=== PATIENT | female | born 1950 | race Caucasian/White ===

== ENCOUNTER 2017-07-09 14:08 | Observation (INO) | payer OTHER, MEDICARE ==
[~2017-07-09] VITALS: Ht 162.6 cm; Wt 69.9 kg
[~2017-07-09 14:08] MED LIST: ASCA500 PO; ASPEC81 PO; CALCTAB5 PO; DOCU-94 PO; GABA-113 PO; HYDR-5688 PO; LEVO50TA6 PO; LEVO75TA5 PO; LORA1TAB13 PO; MULT-506 PO; OXYSR10 PO; ROPI0.25 PO; SERT100T PO; SIMV40TA2 PO; SNK PO; VTMD1000 PO; ZINC1TAB PO
[2017-07-09] MEDS ORDERED: ASPIRIN 81 MG CHEW PO STA (14:41)
[2017-07-09] MEDS ORDERED: ALUMINUM/MAGNESIUM SUSP 30 ML UDC PO STA (14:41)
[2017-07-09 15:01] LABS: BASO % 0.9 %; BASO ABS # 0.06 K/uL (0-0.2); EOS % 1.1 %; EOS ABS # 0.07 K/uL (0-0.5); HEMATOCRIT 40.2 % (37-47); HEMOGLOBIN 13.7 g/dL (12.0-16.0); IG# 0.01 K/uL (0.00-0.02); LYMPH % 33.5 %; LYMPH ABS # 2.12 K/uL (1.2-3.4); MEAN CELL VOLUME 86.3 fL (80-100); MEAN CORPUSCULAR HEMOGLOBIN 29.4 pg (25-34); MEAN CORPUSCULAR HGB CONC 34.1 g/dl (32-36); MEAN PLATELET VOLUME 10.3 fL (7.4-10.4); MONO % 8.1 %; MONO ABS # 0.51 K/uL (0.11-0.59); NEUT % 56.2 %; NEUT ABS # 3.55 K/uL (1.4-6.5); PLATELET COUNT 259 K/uL (130-400); RED CELL DISTRIBUTION WIDTH CV 13.2 % (11.5-14.5); RED CELL DISTRIBUTION WIDTH SD 41.9 fL (36.4-46.3); WHITE BLOOD COUNT 6.32 K/uL (4.8-10.8)
--- NOTE | 2017-07-09 15:03 | EMERGENCY ROOM VISIT NOTE ---
History Report prepared by Junior: Froylan Gayle Under the Supervision of: Dr. Kirill Bhandari D.O. First contact with patient: 14:33 Chief Complaint: CHEST PAIN Stated Complaint: CHEST PAIN Nursing Triage Summary: C/O CP all day described as burning with pain radiating into the left arm and tingling in left fingers. Denies cardaic hx. History of Present Illness The patient is a 67 year old female who presents to the Emergency Room with complaints of intermittent chest discomfort beginning 7.5 hours ago. The patient states she took her morning medication with a glass of water. She reports as she drank the water and developed severe chest pain. The patient notes it went away, and then came back. She states it was worse when she returned. The patient reports she developed another sensation as well, but she cannot explain it. She notes it is different from the pain. The patient states she was not experiencing this discomfort when her first EKG was performed. She reports she took 81mg of aspirin, but it did not help. The patient notes exertion worsens her pain. She states the past couple of days she has been experiencing more leg pain than normal. The patient reports she had a heart catheterization 12 years ago, and it was completely clean. She notes she had it performed because her medical doctor wanted it for the patient's family history of heart disease. The patient states she has a long family history of cardiac disease, and her mother from an [place]. She reports she has a history of fibromyalgia, HLD, a hysterectomy, tubal ligation, and bilateral knee replacements. The patient denies abdominal pain, a history of smoking, using alcohol, a history of cancer, a history of blood clots in her legs or lung, HTN , DM, and a history of stomach problems. Source of History: patient Onset: 7.5 hours ago Position: chest Symptom Intensity: severe Timing: intermittent Modifying Factors (Worsening): exertion Associated Symptoms: No abdominal pain Note: Associated symptoms: more leg pain than normal Review of Systems See HPI for pertinent positives & negatives. A total of 10 systems reviewed and were otherwise negative. Past Medical & Surgical Medical Problems: (1) Chest pain (2) Fibromyalgia (3) HLD (hyperlipidemia) Surgical Problems: (1) Post-operative state Family History Heart disease Hypertension Social History Smoking Status: Former Smoker Alcohol Use: none Marital Status: Housing Status: lives with significant other Occupation Status: retired Current/Historical Medications Scheduled Ascorbic Acid (Vitamin C), 1,000 MG PO QAM Aspirin (Aspirin Ec), 81 MG PO HS Calcium Carbonate (Calcium Carbonate), 1,200 MG PO QAM Cholecalciferol (Vitamin D3), 5,000 UNITS PO DAILY Gabapentin (Neurontin), 600 MG PO TID Garlic (Garlic), Unknown Dose PO DAILY Levothyroxine Sodium (Levothyroxine Sodium), 75 MCG PO QAM Lorazepam (Lorazepam), 1 TAB PO HS Magnesium Oxide (Magnesium), Unknown Dose PO DAILY Multivitamin (Multivitamin), 1 TAB PO QAM Ropinirole (Requip), 4 MG PO HS Sertraline (Zoloft), 50 MG PO QAM Sertraline Hcl (Zoloft), 100 MG PO QAM Simvastatin (Zocor), 40 MG PO QPM Zinc Gluconate (Zinc), 50 MG PO QAM Scheduled PRN Tramadol (Ultram), 50 MG PO Q6H PRN for Pain Allergies Coded Allergies: Sulfa Antibiotics (Verified Allergy, Severe, HIVES, 07/09/17) Chlorhexidine (Verified Allergy, Intermediate, FOLLICULITIS NEEDING ANTIBIOTICS, 07/09/17) pt got folliculitis from use and had to be placed on antibiotic Physical Exam Vital Signs Date Time Temp Pulse Resp B/P (MAP) Pulse Ox O2 Delivery O2 Flow Rate FiO2 07/09/17 17:00 63 20 140/76 96 Room Air 07/09/17 15:26 60 20 128/71 96 07/09/17 15:08 66 20 128/71 95 07/09/17 14:39 69 07/09/17 14:35 Room Air 07/09/17 14:13 36.9 73 18 128/90 96 Room Air Physical Exam GENERAL: Patient is awake, alert, and in no acute distress. Patient is resting comfortably and showing no signs of anxiety EYES: The conjunctivae are clear. The pupils are round and reactive. EARS, NOSE, MOUTH AND THROAT: The nose is without any evidence of any deformity. Mucous membranes are moist tongue is midline NECK: The neck is nontender and supple. RESPIRATORY: Normal respiratory effort is noted there is no evidence of wheezing rhonchi or rales CARDIOVASCULAR: Regular rate and rhythm noted there no murmurs rubs or gallops normal S1 normal S2 GASTROINTESTINAL: The abdomen is soft. Bowel sounds are present in all quadrants. Abdomen is nontender MUSCULOSKELETAL/EXTREMITIES: There is no evidence of gross deformity full range of motion is noted in the hips and shoulders SKIN: There is no obvious evidence of any rash. There are no petechiae, pallor or cyanosis noted. NEUROLOGIC: Patient is awake alert and oriented x3. Medical Decision & Procedures ER Provider Diagnostic Interpretation: X-ray results as stated below per interpretation by me and the radiologist. CHEST ONE VIEW PORTABLE HISTORY: 67 years-old Female CHEST PAIN acute atypical chest pain COMPARISON: Chest radiograph 03/19/2015 TECHNIQUE: Portable AP view of the chest FINDINGS: Cardiomediastinal and hilar silhouettes are within normal limits. Atherosclerosis of the aorta. No pneumothorax, pleural effusion, focal airspace consolidation or overt pulmonary edema. The bones of the chest appear grossly intact. IMPRESSION: No acute process. The above report was generated using voice recognition software. It may contain grammatical, syntax or spelling errors. Electronically signed by: Kaushik Rodriguez M.D. 07/09/2017 3:33 PM Dictated Date/Time: 07/09/2017 3:32 PM Laboratory Results 07/09/17 14:50 Red Blood Count 4.66, Mean Corpuscular Volume 86.3, Mean Corpuscular Hemoglobin 29.4, Mean Corpuscular Hemoglobin Concent 34.1, Mean Platelet Volume 10.3, Neutrophils (%) (Auto) 56.2, Lymphocytes (%) (Auto) 33.5, Monocytes (%) (Auto) 8.1, Eosinophils (%) (Auto) 1.1, Basophils (%) (Auto) 0.9, Neutrophils # (Auto) 3.55, Lymphocytes # (Auto) 2.12, Monocytes # (Auto) 0.51, Eosinophils # (Auto) 0.07, Basophils # (Auto) 0.06 07/09/17 14:50 Test 07/09/17 14:50 White Blood Count 6.32 K/uL (4.8-10.8) Red Blood Count 4.66 M/uL (4.2-5.4) Hemoglobin 13.7 g/dL (12.0-16.0) Hematocrit 40.2 % (37-47) Mean Corpuscular Volume 86.3 fL (80-100) Mean Corpuscular Hemoglobin 29.4 pg (25-34) Mean Corpuscular Hemoglobin Concent 34.1 g/dl (32-36) Platelet Count 259 K/uL (130-400) Mean Platelet Volume 10.3 fL (7.4-10.4) Neutrophils (%) (Auto) 56.2 % Lymphocytes (%) (Auto) 33.5 % Monocytes (%) (Auto) 8.1 % Eosinophils (%) (Auto) 1.1 % Basophils (%) (Auto) 0.9 % Neutrophils # (Auto) 3.55 K/uL (1.4-6.5) Lymphocytes # (Auto) 2.12 K/uL (1.2-3.4) Monocytes # (Auto) 0.51 K/uL (0.11-0.59) Eosinophils # (Auto) 0.07 K/uL (0-0.5) Basophils # (Auto) 0.06 K/uL (0-0.2) RDW Standard Deviation 41.9 fL (36.4-46.3) RDW Coefficient of Variation 13.2 % (11.5-14.5) Immature Granulocyte % (Auto) 0.2 % Immature Granulocyte # (Auto) 0.01 K/uL (0.00-0.02) Prothrombin Time 10.9 SECONDS (9.0-12.0) Prothromb Time International Ratio 1.0 (0.9-1.1) Activated Partial Thromboplast Time 27.4 SECONDS (21.0-31.0) Partial Thromboplastin Ratio 1.1 Anion Gap 7.0 mmol/L (3-11) Est Creatinine Clear Calc Drug Dose 68.8 ml/min Estimated GFR () 95.6 Estimated GFR (Non- 82.5 BUN/Creatinine Ratio 21.3 (10-20) Calcium Level 8.9 mg/dl (8.5-10.1) Total Bilirubin 0.6 mg/dl (0.2-1) Direct Bilirubin 0.1 mg/dl (0-0.2) Aspartate Amino Transf (AST/SGOT) 16 U/L (15-37) Alanine Aminotransferase (ALT/SGPT) 27 U/L (12-78) Alkaline Phosphatase 92 U/L (45-117) Troponin I < 0.015 ng/ml (0-0.045) Total Protein 7.3 gm/dl (6.4-8.2) Albumin 4.0 gm/dl (3.4-5.0) Lipase 209 U/L (73-393) Laboratory results per my review. Medications Administered Medications (Trade) Dose Ordered Sig/Mele Route Start Time Stop Time Status Last Admin Dose Admin Al Hydroxide/Mg Hydroxide (Maalox Susp) 30 ml NOW STAT PO 07/09/17 14:41 07/09/17 14:42 DC 07/09/17 15:02 30 ML Aspirin (Aspirin Chew) 162 mg NOW STAT PO 07/09/17 14:41 07/09/17 14:42 DC 07/09/17 15:02 162 MG ECG Indication: chest pain Rate (beats per minute): 63 Rhythm: normal sinus Findings: no ectopy, other (No acute ST segment abnormality) Comparison ECG Date: 03/19/15 Change: no significant change Change: Second EKG with chest discomfort: Normal Sinus 60, no ectopy, no change from previous EKG Patient's EKG was interpreted by me. ED Course 1436: The patient was evaluated in room A11B. A complete history and physical examination were performed. 1441: Ordered Aspirin 162 mg PO, Maalox Susp 30 ml PO 1532: The patient's HEART Score was calculated to be 5. 1556: Upon reevaluation, the patient is resting comfortably. I discussed results and treatment plan with her. She verbalizes agreement and understanding. The patient will be evaluated for further management and care. 1605: I discussed the patient's case [facility] Powell[facility] The patient will be evaluated for further management and care. Medical Decision Differential diagnosis: Etiologies such as cardiac ischemia, aortic dissection, pulmonary embolism, pneumonia, pneumothorax, musculoskeletal, infections, pericarditis, myocarditis , esophageal rupture, gastrointestinal, as well as others were entertained. Nursing notes reviewed. The patient is a 67-year-old female who presented to the emergency department for an evaluation of chest discomfort. The patient describes burning on her chest which goes to her jaw but also seemed to be somewhat epigastric in nature. The patient has a strong family history of early coronary artery disease. She also states that the pain was somewhat related to exertion. I discussed the patient's laboratory and radiographic studies with her. I also discussed the limitations of the emergency department workup for chest pain with her. She was given aspirin in the emergency department. Her heart score appears to be 5. I feel this puts her at higher risk for a cardiac event. For this reason I discussed her case with the on-call [facility] [address] hospitalist. They have agreed to evaluate the patient in the emergency department for further management and disposition. The patient was agreeable to this point. Medication Reconcilliation Current Medication List: was personally reviewed by me Blood Pressure Screening Patient's blood pressure: Elevated blood pressure Monitored by hospitalist. Consults Time Called: 1558 Consulting Phys[facility] Returned Call: 1605 I discussed the patient's [facility] The patient will be evaluated for further management and care. Impression Primary Impression: Exertional chest pain Scribe Attestation The scribe's documentation has been prepared under my direction and personally reviewed by me in its entirety. I confirm that the note above accurately reflects all work, treatment, procedures, and medical decision making performed by me. Departure Information Dispostion Being Evaluated By Hospitalist Referrals Jonathan Navarro M.D. (PCP) Patient Instructions My [facility]
[2017-07-09] MEDS ORDERED: CALC-392 PO (15:04)
[2017-07-09] MEDS ORDERED: GARL400T2 PO (15:04)
[2017-07-09] MEDS ORDERED: MAGN1TAB41 PO (15:04)
[2017-07-09] MEDS ORDERED: SERT50TA PO (15:04)
[2017-07-09] MEDS ORDERED: ROPI4TAB3 PO (15:04)
[2017-07-09] MEDS ORDERED: TRAM-10 PO (15:04)
[2017-07-09] MEDS ORDERED: ASPI81TA28 PO (15:04)
[2017-07-09] MEDS ORDERED: CHOLCAP5 PO (15:10)
[2017-07-09 15:18] LABS: ALT/SGPT 27 U/L (12-78); AST/SGOT 16 U/L (15-37); BLOOD UREA NITROGEN 16 mg/dl (7-18); CALCIUM 8.9 mg/dl (8.5-10.1); CARBON DIOXIDE 26 mmol/L (21-32); CREATININE 0.75 mg/dl (0.60-1.20); GLUCOSE 84 mg/dl (70-99); LIPASE 209 U/L (73-393); PTT PATIENT 27.4 SECONDS (21.0-31.0); SODIUM 139 mmol/L (136-145)
[2017-07-09 15:25] LABS: ALKALINE PHOSPHATASE 92 U/L (45-117); TOTAL PROTEIN 7.3 gm/dl (6.4-8.2)
--- NOTE | 2017-07-09 15:35 | DIAGNOSTIC IMAGING REPORT ---
CHEST ONE VIEW PORTABLE HISTORY: 67 years-old Female CHEST PAIN acute atypical chest pain COMPARISON: Chest radiograph 03/19/2015 TECHNIQUE: Portable AP view of the chest FINDINGS: Cardiomediastinal and hilar silhouettes are within normal limits. Atherosclerosis of the aorta. No pneumothorax, pleural effusion, focal airspace consolidation or overt pulmonary edema. The bones of the chest appear grossly intact. IMPRESSION: No acute process. The above report was generated using voice recognition software. It may contain grammatical, syntax or spelling errors. Electronically signed by: Kaushik Rodriguez M.D. 07/09/2017 3:33 PM Dictated Date/Time: 07/09/2017 3:32 PM
[2017-07-09] MEDS ORDERED: MoRPHine SULFATE 2 MG/ML CARP IV PRN (16:45)
[2017-07-09] MEDS ORDERED: ACETAMINOPHEN 325 MG TAB PO PRN (16:45)
[2017-07-09] MEDS ORDERED: NITROGLYCERIN 0.4 MG SL PER TAB CHARGE SL PRN (16:45)
[2017-07-09] MEDS ORDERED: TRAMADOL HCL 50 MG TAB PO PRN (16:45)
[2017-07-09] MEDS ORDERED: ONDANSETRON INJ 2 MG/ML 2 ML VIAL IV PRN (16:45)
[2017-07-09] MEDS ORDERED: ALUMINUM/MAGNESIUM/SIMETH (MAALOX MAX) 30 ML UDC PO PRN (16:45)
[2017-07-09] MEDS ORDERED: POLYETHYLENE (MIRALAX) 17 GM PACK PO PRN (16:45)
[2017-07-09 17:58] VITALS: BP 126/78; PULSE 65; TEMP 37; O2SAT 99; Ht 162.6 cm; Wt 69.9 kg
[2017-07-09 19:08] VITALS: BP 120/72; PULSE 66; TEMP 37.3; O2SAT 95
--- NOTE | 2017-07-09 19:12 | HISTORY & PHYSICAL EXAMINATION ---
DATE OF ADMISSION: 07/09/2017 CHIEF COMPLAINT: Chest pain. HISTORY OF PRESENT ILLNESS: This is a 67-year-old female with past medical history significant for hypothyroidism, irritable bowel syndrome, fibromyalgia, urinary incontinence, restless leg syndrome, GERD, dyslipidemia, panic attacks, anxiety attack, osteopenia presents with chest pain. The patient today morning after she took her Synthroid with a glass of water then she noticed chest pain. She thought it was from gas related, but it did not go away in the afternoon and keep getting worse, coming on and off, radiating to her left jaw, left shoulder, and left arm, not associated with any nausea or sweating, no dizziness, no headaches, no blurred vision, no cough. She gets short of breath on exertion usually. No sore throat, no difficulty swallowing. No fever, no chills. No abdominal pain, no diarrhea, no constipation, no blood in the urine, no blood in the stools. No swelling in the legs. No skin rash. Currently resting comfortably and hemodynamically stable. The pain is coming on and off. The patient has significant family history. Her mother of cardiac disease and her 2 brothers and 1 sister has coronary artery disease and CABGs so she had a cardiac catheterization done 12 years ago in 2005 because of family history and it was clean at that time. ALLERGIES: CHLORHEXIDINE AND SULFA ANTIBIOTICS. PAST MEDICAL HISTORY: As mentioned above. PAST SURGICAL HISTORY: Colonoscopy, knee arthroscopy, total hysterectomy, cardiac catheterization, upper endoscopy. MEDICATIONS: The patient is on Ativan 1 mg p.o. at bedtime, ropinirole 4 mg p.o. at bedtime, tramadol 50 mg every 6 hours p.r.n., gabapentin 300 mg in a.m. and in the afternoon and 600 mg at bedtime, Zoloft 150 mg p.o. daily, simvastatin 40 mg p.o. daily, levothyroxine 75 mcg p.o. daily, zinc 70 mg p.o. capsule daily, vitamin D 5000 units p.o. daily, multivitamin p.o. daily, vitamin C 500 mg p.o. daily, calcium plus magnesium 1 tablet daily, aspirin 81 mg p.o. daily. FAMILY HISTORY: Significant for father had leukemia. Mother had uterine cancer, glaucoma, hypertension, heart disease. Sister has leukemia. Two brothers had arthritis and also 2 of the 3 brothers and 1 sister have coronary artery disease. SOCIAL HISTORY: Former smoker, quit in 1995. Smoked 0.1 pack a day for 6 years. Alcohol rarely. No drug abuse. . REVIEW OF SYMPTOMS: As per HPI. Rest of review of symptoms negative. PHYSICAL EXAMINATION: GENERAL: The patient is of moderate build, not in distress. VITAL SIGNS: Temperature 36.9, pulse 63, respiratory rate 20, blood pressure 128/71, oxygen 96% on room air. HEENT: No pallor, no icterus. Pupils equal, round, and reactive to light. NECK: No JVD, no neck masses, no carotid bruits. CARDIOVASCULAR: S1, S2 heard, regular rate and rhythm, no murmur, no gallop. RESPIRATORY SYSTEM: Normal AP diameter. No accessory muscle use. No wheezing, no crackles. ABDOMEN: Soft, bowel sounds present. Nontender. No distention. CENTRAL NERVOUS SYSTEM: Cranial nerves II-XII grossly intact. Nonfocal. EXTREMITIES: No edema, no erythema. LABORATORY DATA: WBC 6.3, hemoglobin 13.7, hematocrit 40.2, platelets 259. Sodium 139, potassium 4, chloride 106, bicarbonate 26, BUN 16, creatinine 0.7, serum glucose 84, calcium 8.9, total bilirubin 0.6, direct bilirubin 0.1, AST 16, ALT 27, alkaline phosphatase 92, troponin I less than 0.015. Lipase 209. PT 10.9, INR 1, aPTT 27.4. Chest x-ray: No acute process seen. EKG: Normal sinus rhythm with a rate of 63. No ST changes seen. ASSESSMENT AND PLAN: This is a 67-year-old female who presents with chest pain. 1. Chest pain, rule out acute coronary syndrome. Initial workup negative. Significant family history. History of hyperlipidemia. We will observe on tele floor. Serial cardiac enzymes, echocardiogram, n.p.o. from midnight. If workup negative, possible stress test as per cardiology in a.m. We will follow the fasting lipid profile. 2. Hyperlipidemia. Continue statin. Follow fasting lipid profile. 3. History of anxiety and panic attacks. Continue Ativan and Zoloft. 4. Hyperlipidemia. Continue statin. 5. Hypothyroidism. Continue Synthroid. 6. Restless leg syndrome. Continue Requip. 7. Deep vein thrombosis prophylaxis, SCDs and TEDs. 8. Disposition: Observation in tele floor. Expect to discharge home and follow with family doctor. Level 1 full code. MTDD
[2017-07-09] MEDS: GABAPENTIN 600 MG TAB PO SCH (20:58)
[2017-07-09] MEDS ORDERED: SIMVASTATIN 40 MG TAB PO SCH (21:00)
[2017-07-09] MEDS ORDERED: ROPINIROLE HCL 1 MG TAB PO SCH (21:00)
[2017-07-09] MEDS ORDERED: ASPIRIN 81 MG ECTAB PO SCH (21:00)
[2017-07-09] MEDS ORDERED: LORAZEPAM 1 MG TAB PO SCH (21:00)
[2017-07-09 23:36] VITALS: BP 123/75; PULSE 62; TEMP 36.8; O2SAT 93
[2017-07-10 03:43] VITALS: BP 120/73; PULSE 62; TEMP 36.5; O2SAT 96
[2017-07-10] MEDS ORDERED: LEVOTHYROXINE 75 MCG TAB PO SCH (06:00)
[2017-07-10 07:26] VITALS: BP 114/70; PULSE 61; TEMP 36.4; O2SAT 95
[2017-07-10] MEDS: GABAPENTIN 600 MG TAB PO SCH (07:48)
[2017-07-10 08:56] LABS: BASO % 0.5 %; BASO ABS # 0.03 K/uL (0-0.2); EOS % 1.8 %; HEMATOCRIT 41.5 % (37-47); HEMOGLOBIN 14.2 g/dL (12.0-16.0); IG# 0.01 K/uL (0.00-0.02); LYMPH % 33.2 %; LYMPH ABS # 1.88 K/uL (1.2-3.4); MEAN CELL VOLUME 86.8 fL (80-100); MEAN CORPUSCULAR HEMOGLOBIN 29.7 pg (25-34); MEAN CORPUSCULAR HGB CONC 34.2 g/dl (32-36); MEAN PLATELET VOLUME 10.3 fL (7.4-10.4); MONO % 8.5 %; MONO ABS # 0.48 K/uL (0.11-0.59); NEUT % 55.8 %; NEUT ABS # 3.17 K/uL (1.4-6.5); PLATELET COUNT 252 K/uL (130-400); RED CELL DISTRIBUTION WIDTH CV 13.4 % (11.5-14.5); RED CELL DISTRIBUTION WIDTH SD 42.6 fL (36.4-46.3); WHITE BLOOD COUNT 5.67 K/uL (4.8-10.8)
[2017-07-10] MEDS ORDERED: ASCORBIC ACID 500 MG TAB PO SCH (09:00)
[2017-07-10] MEDS ORDERED: CALCIUM 600MG + VIT D 400 IU TAB PO SCH (09:00)
[2017-07-10] MEDS ORDERED: MULTIVITAMIN TAB PO SCH (09:00)
[2017-07-10] MEDS ORDERED: SERTRALINE HCL 50 MG TAB PO SCH (09:00)
[2017-07-10] MEDS ORDERED: SERTRALINE HCL 100 MG TAB PO SCH (09:00)
[2017-07-10 09:15] LABS: CALCIUM 9.6 mg/dl (8.5-10.1); CREATININE 0.7 mg/dl (0.60-1.20); POTASSIUM 4.1 mmol/L (3.5-5.1)
[2017-07-10] MEDS ORDERED: DOBUTamine HCL 12.5 MG/ML 20 ML VIAL ONE (09:51)
[2017-07-10] MEDS ORDERED: METOPROLOL TARTRATE 1 MG/ML VIAL ONE (09:51)
[2017-07-10] MEDS ORDERED: ATROPINE SULFATE 0.1 MG/ML 5ML SYR ONE (09:52)
--- NOTE | 2017-07-10 10:42 | ECHOCARDIOGRAM REPORT ---
*NOTICE TO RECEIVING DEMOCRAT AGENCY This information is strictly Confidential and protected under [place] law. [place] law prohibits you from making any further disclosure of this information unless further disclosure is expressly permitted by the written consent of the person to whom it pertains or is authorized by law. A general authorization for the release of medical or other information is not sufficient for this purpose. Hospital accepts no responsibility if the information is made available to any other person, INCLUDING THE PATIENT. Interpretation Summary * Name: RENITA RITCHIE Study Date: 07/10/2017 06:43 AM BP: 120/73 mmHg * Patient Location: [facility] HR: 62 * : 1950 (M/d/yyyy) Gender: Female Height: 62 in * Age: 67 yrs Ethnicity: [place] Weight: 156 lb * Ordering Physician: Teddy Powell * Referring Physician: Self, Referred * Performed By: Kelly Coulter RDCS * * Reason For Study: Chest Pain * BSA: 1.7 m2 * -- Conclusions -- * Normal LV chamber size and wall thickness. * Normal LV systolic function, EF 55-60%. * No segmental left ventricular wall motion abnormalities are noted. * Grade I diastolic dysfunction. * Mild tricuspid regurgitation. Procedure Details * A complete two-dimensional transthoracic echocardiogram was performed (2D, M-mode, Doppler and color flow Doppler). Left Ventricle * The left ventricle is normal in size. * There is normal left ventricular wall thickness. * Ejection Fraction = 55-60%. * Left ventricular systolic function is normal. * No segmental left ventricular wall motion abnormalities are noted. * The left ventricular wall motion is normal. Right Ventricle * The right ventricular cavity size is normal (basal dimension <4.2 cm in right ventricular apical 4-chamber view). * The right ventricular systolic function is normal as assessed by tricuspid annular plane systolic excursion (TAPSE) (normal >1.5 cm). Atria * The left atrial size is normal. * Right atrial size is normal. * No ASD detected; PFO is not assessed. Mitral Valve * The mitral valve is normal in structure and function. Tricuspid Valve * The tricuspid valve anatomy is normal. * There is no tricuspid stenosis. * There is mild tricuspid regurgitation. Aortic Valve * The aortic valve is normal in structure and function. Pulmonic Valve * The pulmonary valve is not well seen, but the Doppler examination is normal without significant regurgitation or stenosis. Great Vessels * The aortic root is normal size. Pericardium/Pleural * There is no pericardial effusion. Left Ventricular Diastolic Function * Grade I diastolic dysfunction, (abnormal relaxation pattern). MMode 2D Measurements and Calculations IVSd 0.88 cm IVSs 1.3 cm LVIDd 4.0 cm LVIDs 2.5 cm LVPWd 0.94 cm LVPWs 1.6 cm IVS/LVPW 0.93 FS 38.2 % EDV(Teich) 71.5 ml ESV(Teich) 22.2 ml EF(Teich) 69.0 % EDV(cubed) 65.7 ml ESV(cubed) 15.5 ml EF(cubed) 76.4 % % IVS thick 43.2 % % LVPW thick 65.7 % LV mass(C)d 112.6 grams LV mass(C)dI 65.5 grams/m\S\2 LV mass(C)s 111.9 grams LV mass(C)sI 65.1 grams/m\S\2 SV(Teich) 49.3 ml SI(Teich) 28.7 ml/m\S\2 SV(cubed) 50.2 ml SI(cubed) 29.2 ml/m\S\2 Ao root diam 2.7 cm Ao root area 5.9 cm\S\2 ACS 1.6 cm LA dimension 3.2 cm LA/Ao 1.2 LVAd ap4 22.5 cm\S\2 LVLd ap4 6.9 cm EDV(MOD-sp4) 63.0 ml EDV(sp4-el) 62.2 ml LVAs ap4 13.8 cm\S\2 LVLs ap4 6.3 cm ESV(MOD-sp4) 26.4 ml ESV(sp4-el) 25.9 ml EF(MOD-sp4) 58.1 % EF(sp4-el) 58.5 % LVAd ap2 25.9 cm\S\2 LVLd ap2 7.2 cm EDV(MOD-sp2) 79.1 ml EDV(sp2-el) 79.1 ml LVAs ap2 14.2 cm\S\2 LVLs ap2 5.8 cm ESV(MOD-sp2) 31.1 ml ESV(sp2-el) 29.3 ml EF(MOD-sp2) 60.7 % EF(sp2-el) 62.9 % LVLd %diff 4.1 % EDV(MOD-bp) 72.6 ml LVLs %diff -7.33 % ESV(MOD-bp) 29.7 ml EF(MOD-bp) 59.1 % SV(MOD-sp4) 36.6 ml SI(MOD-sp4) 21.3 ml/m\S\2 SV(MOD-sp2) 48.0 ml SI(MOD-sp2) 27.9 ml/m\S\2 SV(MOD-bp) 42.9 ml SI(MOD-bp) 24.9 ml/m\S\2 SV(sp4-el) 36.4 ml SI(sp4-el) 21.2 ml/m\S\2 SV(sp2-el) 49.8 ml SI(sp2-el) 28.9 ml/m\S\2 Doppler Measurements and Calculations MV E max pia 67.4 cm/sec MV A max pia 89.7 cm/sec MV E/A 0.75 MV dec time 0.43 sec Ao V2 max 135.7 cm/sec Ao max PG 7.4 mmHg Ao max PG (full) 4.4 mmHg LV V1 max PG 3.0 mmHg LV V1 max 86.8 cm/sec PA V2 max 107.1 cm/sec PA max PG 4.6 mmHg PI max pia 150.3 cm/sec PI max PG 9.0 mmHg PI dec slope 128.2 cm/sec\S\2 PI P1/2t 343.5 msec TR max pia 222.0 cm/sec
--- NOTE | 2017-07-10 10:56 | DOBUTAMINE ECHO ---
*NOTICE TO RECEIVING REPUBLICAN AGENCY This information is strictly Confidential and protected under [place] law. [place] law prohibits you from making any further disclosure of this information unless further disclosure is expressly permitted by the written consent of the person to whom it pertains or is authorized by law. A general authorization for the release of medical or other information is not sufficient for this purpose. Hospital accepts no responsibility if the information is made available to any other person, INCLUDING THE PATIENT. Interpretation Summary * Name: RENITA RITCHIE Study Date: 07/10/2017 09:28 AM BP: 106/59 mmHg * Patient Location: C.2T\S\S229\S\2 HR: 57 * : 1950 (M/d/yyyy) Gender: Female Height: 64 in * Age: 67 yrs Ethnicity: [place] Weight: 154 lb * Ordering Physician: Mushtaq Thacker * Referring Physician: Self, Referred * Performed By: Kelly Coulter RDCS * * Reason For Study: Chest Pain * BSA: 1.8 m2 * -- Conclusions -- * Nonischemic exercise stress echocardiogram. * No arrhythmias. * Normal HR and BP response to dobutamine infusion. * Chest pain was not reproduced with dobutamine infusion. Procedure Details * DOBUTAMINE ECHO, CPT#48379 * A contrast injection of Definity was performed to improve assessment of LV function. * Contrast was injected into an intravenous site in the right arm. * One vial of Definity ultrasound contrast was diluted in normal saline to a total volume of 10 ml. A total of '6' ml of solution was administered during imaging. * Lot # [id number] of Definity utilized for procedure. * Expiration date . * The attending nurse who injected the contrast agent was LAWRENCE Us. Stress Parameters * The stress portion of this study was personally supervised by the undersigned interpreting physician. * Rest heart rate was '57' BPM. * Rest blood pressure was '106/59' * Maximum heart rate achieved was 150 bpm. * Maximum heart rate was 98 % of maximum age-predicted heart rate. * Maximum blood pressure was '150/84' * Maximum Dobutamine infusion rate was '40' mcg/kg/min. * A total of 0.5 mg of intravenous Atropine was used to supplement Dobutamine for heart rate response. * Dobutamine infusion was terminated due to achieving target heart rate * A total of 5 mg of IV Metoprolol was administered to reverse Dobutamine-induced tachycardia.
[2017-07-10 11:05] VITALS: BP 129/85; PULSE 73; TEMP 36.4; O2SAT 96
--- NOTE | 2017-07-10 13:01 | CARDIOLOGY CONSULTATION ---
DATE OF CONSULTATION: 07/10/2017 CONSULTATION REQUESTED BY: Dr. Powell. REASON FOR CONSULTATION: Chest pain. HISTORY OF PRESENT ILLNESS: Mrs. Arriaga is a very pleasant 67-year-old woman who presented to [facility] Emergency Department on 07/09/2017 with a complaint of chest discomfort. The patient states that she woke up yesterday in her normal state of health and as per usual, took her Synthroid first thing in the morning with some water; however, after taking the pills, she developed substernal pressure sensation. She states that she has never had anything like this before and ____ in her chest. It slowly subsided at that time, but then seemed to wax and wane throughout the morning. She was supposed to go to [employer] with her ; however, she did not feel up to it and became concerned about this discomfort and stayed at home instead. Again, it waxed and waned throughout the morning, but it seemed to steadily get worse as well. It also started to radiate to her left jaw, her left shoulder and down her left arm, but she denied any associated shortness of breath, nausea, palpitations, lightheadedness, dizziness, or syncope. When her came home from [employer], they were concerned and she came into the Emergency Department. Since admission, she has not had any recurrences of her chest discomfort. Her cardiac enzymes and EKG were unremarkable and she is currently symptom free at this time. PAST SURGICAL HISTORY: 1. Bilateral knee surgery. 2. Eye surgery. 3. Total abdominal hysterectomy. 4. Colonoscopy. MEDICAL ILLNESSES: 1. Anxiety with panic attacks. 2. Fibromyalgia. 3. Osteoarthritis. 4. Peptic ulcer disease. 5. Restless legs syndrome. 6. Sciatica. 7. Osteopenia. FAMILY HISTORY: She has a very strong family history of premature coronary artery disease including twin brothers, who developed coronary artery disease in their 40s and a sister in her 50s. SOCIAL HISTORY: The patient has a remote smoking history, quit in 1999. Denies any alcohol or recreational drug use. She is . She lives at home with her . 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 REVIEW OF SYSTEMS: As per HPI. All other review of systems reviewed and negative at this time. ALLERGIES: SULFA. MEDICATIONS AN OUTPATIENT: 1. Aspirin 81 mg daily. 2. Levoxyl daily. 3. Simvastatin 40 mg daily. 4. Zoloft daily. 5. Neurontin b.i.d. 6. Tramadol as needed. 7. Requip at bedtime. 8. Ativan as needed. PHYSICAL EXAMINATION: VITALS: Temperature 36.4, pulse 61, respiratory rate 12, and blood pressure 114/70. GENERAL: Awake, alert, and oriented x3, in no acute distress. HEENT: Normocephalic and atraumatic. Pupils equal, round, and reactive to light and accommodation. Extraocular muscles intact. Anicteric sclerae. Moist mucous membranes. NECK: No JVD. No bruit. CARDIOVASCULAR: Regular. No S4. Normal S1 and S2. No S3. No murmurs, rubs or gallops. PULMONARY: Clear to auscultation bilaterally. No rales, rhonchi, or wheezing. ABDOMEN: Bowel sounds x4. Soft. No rebound, guarding, or tenderness. No organomegaly. EXTREMITIES: No clubbing, cyanosis or edema. +2 pedal pulses bilaterally. SKIN: Warm and dry. TEST RESULTS: Dobutamine stress echocardiogram was nonischemic with no inducible arrhythmias. IMPRESSION: 1. Chest discomfort with nonischemic dobutamine stress echocardiogram. 2. History of peptic ulcer disease. RECOMMENDATIONS: It was my pleasure to see Mrs. Arriaga in consultation today. From a cardiac standpoint, I do not see any cardiac component to her chest discomfort given her negative workup. My suspicion is most likely a combination of a pill esophagitis and anxiety, but no further cardiac testing or intervention is necessary at this time. It is okay to discharge the patient to home and no new medications will be added and I recommend she follow up with her primary care physician as an outpatient.
--- NOTE | 2017-07-10 13:14 | Progress Note ---
Medicine Progress Note Date & Time of Visit: Jul 10, 2017 at 13:14. Objective Last 8 Hrs Date Time Temp Pulse Resp B/P (MAP) Pulse Ox O2 Delivery O2 Flow Rate FiO2 07/10/17 12:00 Room Air 07/10/17 11:05 36.4 73 18 129/85 (100) 96 07/10/17 08:00 Room Air 07/10/17 07:26 36.4 61 18 114/70 (85) 95 Physical Exam: General-[] Eyes-[] ENT-[] Neck-[] Lungs-[] Heart-[] Abdomen-[] Extremities-[] Neuro-[] Laboratory Results: Last 24 Hours Test 07/09/17 14:50 07/10/17 00:21 07/10/17 08:25 White Blood Count 6.32 K/uL 5.67 K/uL Red Blood Count 4.66 M/uL 4.78 M/uL Hemoglobin 13.7 g/dL 14.2 g/dL Hematocrit 40.2 % 41.5 % Mean Corpuscular Volume 86.3 fL 86.8 fL Mean Corpuscular Hemoglobin 29.4 pg 29.7 pg Mean Corpuscular Hemoglobin Concent 34.1 g/dl 34.2 g/dl Platelet Count 259 K/uL 252 K/uL Mean Platelet Volume 10.3 fL 10.3 fL Neutrophils (%) (Auto) 56.2 % 55.8 % Lymphocytes (%) (Auto) 33.5 % 33.2 % Monocytes (%) (Auto) 8.1 % 8.5 % Eosinophils (%) (Auto) 1.1 % 1.8 % Basophils (%) (Auto) 0.9 % 0.5 % Neutrophils # (Auto) 3.55 K/uL 3.17 K/uL Lymphocytes # (Auto) 2.12 K/uL 1.88 K/uL Monocytes # (Auto) 0.51 K/uL 0.48 K/uL Eosinophils # (Auto) 0.07 K/uL 0.10 K/uL Basophils # (Auto) 0.06 K/uL 0.03 K/uL RDW Standard Deviation 41.9 fL 42.6 fL RDW Coefficient of Variation 13.2 % 13.4 % Immature Granulocyte % (Auto) 0.2 % 0.2 % Immature Granulocyte # (Auto) 0.01 K/uL 0.01 K/uL Prothrombin Time 10.9 SECONDS Prothromb Time International Ratio 1.0 Activated Partial Thromboplast Time 27.4 SECONDS Partial Thromboplastin Ratio 1.1 Sodium Level 139 mmol/L 137 mmol/L Potassium Level 4.0 mmol/L 4.1 mmol/L Chloride Level 106 mmol/L 104 mmol/L Carbon Dioxide Level 26 mmol/L 25 mmol/L Anion Gap 7.0 mmol/L 8.0 mmol/L Blood Urea Nitrogen 16 mg/dl 16 mg/dl Creatinine 0.75 mg/dl 0.70 mg/dl Est Creatinine Clear Calc Drug Dose 68.8 ml/min 74.9 ml/min Estimated GFR () 95.6 103.9 Estimated GFR (Non- 82.5 89.7 BUN/Creatinine Ratio 21.3 23.1 Random Glucose 84 mg/dl 100 mg/dl Calcium Level 8.9 mg/dl 9.6 mg/dl Total Bilirubin 0.6 mg/dl Direct Bilirubin 0.1 mg/dl Aspartate Amino Transf (AST/SGOT) 16 U/L Alanine Aminotransferase (ALT/SGPT) 27 U/L Alkaline Phosphatase 92 U/L Troponin I < 0.015 ng/ml < 0.015 ng/ml < 0.015 ng/ml Total Protein 7.3 gm/dl Albumin 4.0 gm/dl Lipase 209 U/L Magnesium Level 2.4 mg/dl Triglycerides Level 170 mg/dl Cholesterol Level 178 mg/dl HDL Cholesterol 37 mg/dl LDL Cholesterol, Calculated 107 mg/dl VLDL Cholesterol, Calculated 34 mg/dl Cholesterol/HDL Ratio 4.8 Assessment & Plan Current Inpatient Medications: Current Inpatient Medications Medications (Trade) Dose Ordered Sig/Mele Route Start Time Stop Time Status Last Admin Dose Admin Acetaminophen (Tylenol Tab) 650 mg Q4H PRN PO 07/09/17 16:45 08/08/17 16:44 Al Hydrox/Mg Hydrox/Simethicone (Maalox Max Susp) 15 ml Q4H PRN PO 07/09/17 16:45 08/08/17 16:44 Ondansetron HCl (Zofran Inj) 4 mg Q6H PRN IV 07/09/17 16:45 08/08/17 16:44 Nitroglycerin (Nitrostat Tab) 0.4 mg UD PRN SL 07/09/17 16:45 08/08/17 16:44 Morphine Sulfate (MoRPHine SULFATE INJ) 2 mg Q30M PRN IV 07/09/17 16:45 07/23/17 16:44 Polyethylene (Miralax Powder Packet) 17 gm DAILY PRN PO 07/09/17 16:45 08/08/17 16:44 Ascorbic Acid (Vitamin C Tab) 1,000 mg QAM PO 07/10/17 09:00 08/09/17 08:59 07/10/17 07:47 1,000 MG Aspirin (Ecotrin Tab) 81 mg HS PO 07/09/17 21:00 08/08/17 20:59 07/09/17 20:58 81 MG Gabapentin (Neurontin Tab) 600 mg TID PO 07/09/17 21:00 08/08/17 20:59 07/10/17 07:48 600 MG Levothyroxine Sodium (Synthroid Tab) 75 mcg DAILYBB PO 07/10/17 06:00 08/09/17 05:59 07/10/17 05:43 75 MCG Lorazepam (Ativan Tab) 1 mg HS PO 07/09/17 21:00 08/08/17 20:59 07/09/17 20:57 1 MG Multivitamins (Multivitamin Tab) 1 tab QAM PO 07/10/17 09:00 08/09/17 08:59 07/10/17 07:47 1 TAB Ropinirole HCl (Requip Tab) 4 mg HS PO 07/09/17 21:00 08/08/17 20:59 07/09/17 20:57 4 MG Sertraline HCl (Zoloft Tab) 50 mg QAM PO 07/10/17 09:00 08/09/17 08:59 07/10/17 07:46 50 MG Sertraline HCl (Zoloft Tab) 100 mg QAM PO 07/10/17 09:00 08/09/17 08:59 07/10/17 07:47 100 MG Simvastatin (Zocor Tab) 40 mg QPM PO 07/09/17 21:00 08/08/17 20:59 07/09/17 20:57 40 MG Tramadol HCl (Ultram Tab) 50 mg Q6H PRN PO 07/09/17 16:45 08/08/17 16:44 Calcium/Vitamin D (Caltrate Plus Tab) 2 tab QAM PO 07/10/17 09:00 08/09/17 08:59 07/10/17 07:47 2 TAB
--- NOTE | 2017-07-10 13:31 | Discharge Instructions ---
Discharge Instructions Date of Service Jul 10, 2017. Admission Reason for Admission: Chest Pain Discharge Discharge Diagnosis / Problem: chest pain- no sign of heart attack Discharge Goals Goal(s): Decrease discomfort, Improve disease control Activity Recommendations Activity Limitations: resume your previous activity . Instructions / Follow-Up Instructions / Follow-Up APPOINTMENTS: FAMILY MEDICINE 07/14/2017 12:40 PM Jonathan Navarro MD OTHER INSTRUCTIONS: There was no sign of a heart attack and the stress test went well. Suspect that chest pain was due to problem with esophagus, perhaps spasm. Please ask Dr. Navarro to schedule an esophagram to check things out. Seek medical attention if you have: * temperature above 101 * chest pain or trouble breathing * abdominal pain, nausea, vomiting * diarrhea, dark stools or bloody stools * any unanswered questions or concerns Call 911 if symptoms are severe. Call if you have any questions or problems. My cell # is [phone]. You can also reach a [facility] hospitalist on duty at [facility] 24 hours a day by calling [phone]. Please take good care of yourself. Farzad Gillette . Current Hospital Diet Patient's current hospital diet: AHA Diet (Heart Healthy) Discharge Diet Recommended Diet: AHA Diet (Heart Healthy) Procedures Procedures Performed: echocardiogram stress test Pending Studies Studies pending at discharge: no Laboratory Results Lipid Panel Test 07/10/17 08:25 Range/Units Triglycerides Level 170 H 0-150 mg/dl Cholesterol Level 178 0-200 mg/dl HDL Cholesterol 37 mg/dl Cholesterol/HDL Ratio 4.8 LDL Cholesterol, Calculated 107 mg/dl Medical Emergencies . Who to Call and When: Medical Emergencies: If at any time you feel your situation is an emergency, please call 911 immediately. . Non-Emergent Contact Non-Emergency issues call your: Primary Care Provider, Hospital Doctor . . "Provider Documentation" section prepared by Farzad Gillette. . VTE Core Measure Inpt VTE Proph given/why not?: SCD's
[2017-07-10 13:42] VITALS: BP 129/85; PULSE 73; TEMP 36.4; O2SAT 96
--- NOTE | 2017-07-11 19:40 | Discharge Summary ---
Discharge Summary Date of Service Jul 11, 2017. Discharge Summary Admission Date: Jul 09, 2017 at 16:37 Discharge Date: Jul 10, 2017 Medication Reconciliation Continued Medications: Ascorbic Acid (Vitamin C) 500 Mg Tab 1000 MG PO QAM Aspirin (Aspirin Ec) 81 Mg Tab 81 MG PO HS Calcium Carbonate (Calcium Carbonate) 600 Mg Tab 1200 MG PO QAM Cholecalciferol (Vitamin D3) 5,000 Unit Cap 5000 UNITS PO DAILY Gabapentin (Neurontin) 300 Mg Cap 600 MG PO TID, CAP Garlic (Garlic) Unknown Strength Tab Unknown Dose PO DAILY Levothyroxine Sodium (Levothyroxine Sodium) 75 Mcg Tab 75 MCG PO QAM for 90 Days, #90 TAB 3 Refills Lorazepam (Lorazepam) 1 Mg Tab 1 TAB PO HS for 30 Days, #60 TAB Magnesium Oxide (Magnesium) Unknown Strength Tab Unknown Dose PO DAILY Multivitamin (Multivitamin) Tab 1 TAB PO QAM, TAB Ropinirole (Requip) 4 Mg Tab 4 MG PO HS, TAB Sertraline (Zoloft) 50 Mg Tab 50 MG PO QAM, TAB TAKES WITH 100 MG FOR TOTAL 150 MG DOSE. Sertraline Hcl (Zoloft) 100 Mg Tab 100 MG PO QAM, TAB TAKES WITH 50 MG FOR TOTAL 150 MG DOSE. Simvastatin (Zocor) 40 Mg Tab 40 MG PO QPM, TAB Tramadol (Ultram) 50 Mg Tab 50 MG PO Q6H PRN for Pain, TAB Zinc Gluconate (Zinc) 50 Mg Tab 50 MG PO QAM Discharge Instructions Date of Service Jul 10, 2017. Admission Reason for Admission: Chest Pain Discharge Discharge Diagnosis / Problem: chest pain- no sign of heart attack Discharge Goals Goal(s): Decrease discomfort, Improve disease control Activity Recommendations Activity Limitations: resume your previous activity . Instructions / Follow-Up Instructions / Follow-Up APPOINTMENTS: FAMILY MEDICINE 07/14/2017 12:40 PM Jonathan Navarro MD OTHER INSTRUCTIONS: There was no sign of a heart attack and the stress test went well. Suspect that chest pain was due to problem with esophagus, perhaps spasm. Please ask Dr. Navarro to schedule an esophagram to check things out. Seek medical attention if you have: * temperature above 101 * chest pain or trouble breathing * abdominal pain, nausea, vomiting * diarrhea, dark stools or bloody stools * any unanswered questions or concerns Call 911 if symptoms are severe. Call if you have any questions or problems. My cell # is [phone]. You can also reach a [facility] hospitalist on duty at [facility] 24 hours a day by calling [phone]. Please take good care of yourself. Farzad Gillette . Current Hospital Diet Patient's current hospital diet: AHA Diet (Heart Healthy) Discharge Diet Recommended Diet: AHA Diet (Heart Healthy) Procedures Procedures Performed: echocardiogram stress test Pending Studies Studies pending at discharge: no Laboratory Results Lipid Panel Test 07/10/17 08:25 Range/Units Triglycerides Level 170 H 0-150 mg/dl Cholesterol Level 178 0-200 mg/dl HDL Cholesterol 37 mg/dl Cholesterol/HDL Ratio 4.8 LDL Cholesterol, Calculated 107 mg/dl Medical Emergencies . Who to Call and When: Medical Emergencies: If at any time you feel your situation is an emergency, please call 911 immediately. . Non-Emergent Contact Non-Emergency issues call your: Primary Care Provider, Hospital Doctor . . "Provider Documentation" section prepared by Farzad Gillette. . VTE Core Measure Inpt VTE Proph given/why not?: SCD's .
== END 2017-07-10 13:59 | disposition home or self-care (01) ==
LOC: C.EDB 14:09 → C.2T 16:37 → ENRESERV 16:48
PROVIDERS: ADMIT Hospitalist; ATTEND Hospitalist
DX: R07.9 Chest pain, unspecified (principal); M79.7 Fibromyalgia; M19.90 Unspecified osteoarthritis, unspecified site; G25.81 Restless legs syndrome; E03.9 Hypothyroidism, unspecified; K58.9 Irritable bowel syndrome, unspecified; R32 Unspecified urinary incontinence; Z90.710 Acquired absence of both cervix and uterus; Z87.11 Personal history of peptic ulcer disease; Z79.82 Long term (current) use of aspirin; Z87.891 Personal history of nicotine dependence; Z96.653 Presence of artificial knee joint, bilateral; Z80.6 Family history of leukemia; Z80.49 Family history of malignant neoplasm of other genital organs; Z82.49 Family history of ischemic heart disease and other diseases of the circulatory system; Z83.511 Family history of glaucoma

== ENCOUNTER → 2017-07-25 | Outpatient (CLI) | payer OTHER, MEDICARE ==
[~2017-07-25] MED LIST changes: -ASPEC81 PO; +ASPI81TA28 PO; +CALC-392 PO; -CALCTAB5 PO; +CHOLCAP5 PO; -DOCU-94 PO; +GARL400T2 PO; -HYDR-5688 PO; -LEVO50TA6 PO; +MAGN1TAB41 PO; -OXYSR10 PO; -ROPI0.25 PO; +ROPI4TAB3 PO; +SERT50TA PO; -SNK PO; +TRAM-10 PO; -VTMD1000 PO
--- NOTE | 2017-07-25 13:38 | DIAGNOSTIC IMAGING REPORT ---
VIDEO SWALLOW HISTORY: DYSPHAGIA, REFLUX TECHNIQUE: Video fluoroscopic evaluation of swallowing was performed in the AP and lateral projections by the speech pathology staff. The patient is fed nectar-thick and thin liquid barium, a barium coated wafer, and barium pudding. FLUOROSCOPY TIME: 2.5 minutes. NUMBER OF FLUOROSCOPY IMAGES: 0 COMPARISON STUDY: None. FINDINGS: No aspiration or penetration was visualized. There is disordered esophageal motility. IMPRESSION: 1. 1. No evidence of aspiration or penetration. Disordered esophageal motility. 2. Please see the speech pathologist report for detailed findings and recommendations. Electronically signed by: Sebas Sandoval M.D. 07/25/2017 1:37 PM Dictated Date/Time: 07/25/2017 1:36 PM
--- NOTE | 2017-07-25 14:12 | SWALLOWING EVALUATION ---
HISTORY: This 67 year old woman was referred for a video swallow study at [facility] in order to rule out aspiration and identify the safest consistencies for optimal oral intake. The patient reports episodes where food becomes stuck in her throat causing her to cough and feelings of pressure where she feels as though she needs to gasp for air. She also reports pressure/burning sensation in the mid sternum. At times she reports she has to bring food back up and that these episodes occur mostly with breads and sometimes meats. Hoarseness is also an intermittent issue. PMH is significant hypothyroidism, IBS, fibromyalgia, GERD, and anxiety/panic attacks. She was recently prescribed reflux medications and stated she has just started to take them. Current diet is regular. PROCEDURE: The patient was seen in the Radiology Department of [facility] for the VFSS. Cursory examination of the oral cavity revealed the patient to have natural dentition in good condition. Oral motor function was wnl. The patient was seated upright on a stool and was viewed in both the Anterior-Posterior (A-P) and Lateral planes. Volitional phonation exercises completed in the A-P plane revealed bilateral vocal fold movement and vocal intensity within functional limits. In the lateral plane, the patient was given the following boluses: 1 tsp. thin liquid barium x 2, single swallow thin liquid barium self-presented from a cup, sequential swallows of thin liquid barium self-presented from a straw, 1 tsp. nectar-thick liquid barium, single swallow nectar-thick liquid barium self-presented from a cup, 1 tsp. barium pudding, and 1 club cracker coated in barium pudding. The patient was then repositioned into the A-P plane and given the following boluses: 1 tsp. nectar thick barium and 1 tsp. barium pudding. RESULTS: Oral Stage: Lip closure was adequate. The patient was able to maintain a cohesive liquid bolus in the oral cavity. Mastication was slowed. Lingual motion for bolus transport was also noted to be slow. There was retention lining the tongue and palate after the initial swallow. The initiation of the pharyngeal swallow occurred when the bolus head reached the pyriforms. Pharyngeal Stage: Soft palate elevation was complete. Laryngeal elevation revealed complete superior movement of the thyroid cartilage with complete approximation of the arytenoids to the epiglottic base. Anterior hyoid excursion was partially reduced and epiglottic deflection was complete. Laryngeal vestibular closure was complete. The pharyngeal stripping wave was present and complete. Pharyngeal contraction was complete. There was partial distention and duration of the opening to the pharyngoesophageal segment (PES). Tongue base retraction was partially reduced with a narrow column of contrast located between the tongue base and pharyngeal wall during the swallow. There was mild retention located in the valleculae and in the pyriforms after the swallow. There was no evidence of laryngeal penetration or aspiration for this study. Mild retention cleared with a second swallow that the patient independently generated. No significant difficulty identified. Esophageal stage: The patient presented with moderate amounts of mid-distal esophageal retention and retrograde flow below the PES. This is suggestive of esophageal dysmotility and reflux. A liquid wash assisted to clear some of the retention but not fully. SUMMARY/RECOMMENDATIONS: This patient presents with mild catrachita-pharyngeal dysphagia. She presents with significant s/s of esophageal dysfunction. The following is recommended: 1. Regular "slippery" diet and thin liquids. Avoid foods that are dry, thick, pasty, doughy. Use condiments to assist in keeping foods moist. 2. Aspiration and GERD precautions. Straws OK. Fully upright for meals and for 30 minutes after meals. Do not lay flat, keep head of bed at a 30 degree angle at all times, even while sleeping. 3. Alternate solids and liquids. Rest breaks during meals as needed. Small frequent meals (5-6 per day). 4. Follow up PCP and consider a GI consultation re: management of esophageal dysphagia by completing further testing and/or medication management as indicated. A summary of the results and recommendations was discussed with the patient immediately after the study with verbal understanding. Both verbal and written education was provided regarding a "slippery" diet as well for improved comfort while eating. Thank you for referral of this patient. Please contact me at if any additional information is needed.
== END | disposition home or self-care (01) ==
LOC: C.RAD 12:39
PROVIDERS: ATTEND Family Medicine
DX: R07.9 Chest pain, unspecified (principal); K21.9 Gastro-esophageal reflux disease without esophagitis; R13.12 Dysphagia, oropharyngeal phase

== ENCOUNTER → 2017-09-28 | Outpatient (CLI) | payer OTHER, MEDICARE ==
[2017-09-28 17:51] LABS: BASO % 0.5 %; BASO ABS # 0.05 K/uL (0-0.2); EOS % 3.1 %; EOS ABS # 0.29 K/uL (0-0.5); HEMATOCRIT 41.2 % (37-47); HEMOGLOBIN 14.1 g/dL (12.0-16.0); IG# 0.04 K/uL (0.00-0.02); LYMPH % 28.2 %; LYMPH ABS # 2.61 K/uL (1.2-3.4); MEAN CELL VOLUME 86.2 fL (80-100); MEAN CORPUSCULAR HEMOGLOBIN 29.5 pg (25-34); MEAN CORPUSCULAR HGB CONC 34.2 g/dl (32-36); MEAN PLATELET VOLUME 10.7 fL (7.4-10.4); MONO % 7.6 %; NEUT % 60.2 %; NEUT ABS # 5.58 K/uL (1.4-6.5); PLATELET COUNT 289 K/uL (130-400); RED CELL DISTRIBUTION WIDTH CV 13.2 % (11.5-14.5); RED CELL DISTRIBUTION WIDTH SD 41.8 fL (36.4-46.3); WHITE BLOOD COUNT 9.27 K/uL (4.8-10.8)
--- NOTE | 2017-09-28 19:41 | DIAGNOSTIC IMAGING REPORT ---
BONE SCAN 3 PHASE LIMITED CLINICAL HISTORY: PAINFUL RT TOTAL KNEE TECHNIQUE: Immediately and 3 hours following the intravenous administration of 26.3 mCi of technetium 99 M MDP, 3 phase bone scan of the knees was performed. COMPARISON STUDY: Right knee 06/22/2015. FINDINGS: There are bilateral total knee arthroplasties. No abnormal radiotracer uptake on the blood pool or blood flow sequences. The periprostatic uptake within the left knee on the delayed sequences is considered to be within the range of normal limits. There is slight asymmetric increased periprosthetic uptake within the right tibial component on the delayed sequences only.. IMPRESSION: 1. There is slight asymmetric increased periprosthetic uptake within the right tibial component on the delayed sequences only. This raises the possibility of mild loosening. 2. No abnormal radiation uptake within the left knee. 3. No evidence for three-phase uptake within the knees. Electronically signed by: Manuel Wade M.D. 09/28/2017 7:40 PM Dictated Date/Time: 09/28/2017 7:36 PM
== END | disposition home or self-care (01) ==
LOC: C.NUCL 15:40
PROVIDERS: ATTEND Orthopaedic Surgery
DX: E03.9 Hypothyroidism, unspecified (principal); Z96.651 Presence of right artificial knee joint